=== PATIENT | female | born 1995 | race Caucasian/White ===

== ENCOUNTER 2016-11-26 09:42 | Emergency (ER) ==
[2016-11-26 09:52] VITALS: BP 114/79; TEMP 98; BMI 28.3
--- NOTE | 2016-11-26 09:59 | ED.PDOC ---
General ED Provider: Dr. VIN GALVIN Chief Complaint: Non-specific Complaint Stated Complaint: head lice Time Seen by Physician: 10:00 Mode of Arrival: Walk-In Information Source: Patient Exam Limitations: No limitations Nursing and Triage Documentation Reviewed and Agree: Yes Skin Complaint Exam - Skin Rash/Itching Complaint/Exam Onset/Duration: head lice Symptoms Are: Still present Initial Severity: Mild Current Severity: Mild Potential Exposures: Reports: Other (head lice) Aggravating: Reports: None Alleviating: Reports: None Associated Signs and Symptoms: Denies: Difficulty breathing, Fever, Chills Related History: Similar episode Skin Findings: Present: Normal findings Review of Systems - Review Of Systems Constitutional: Reports: No symptoms Eyes: Reports: No symptoms Ears, Nose, Mouth, Throat: Reports: No symptoms Respiratory: Reports: No symptoms Cardiac: Reports: No symptoms GI: Reports: No symptoms : Reports: No symptoms Musculoskeletal: Reports: No symptoms Skin: Reports: Other (head lice ) Neurological: Reports: No symptoms Endocrine: Reports: No symptoms Hematologic/Lymphatic: Reports: No symptoms All Other Systems: Reviewed and Negative Past Medical History - Past Medical History Endocrine: Reports: None Cardiovascular: Reports: None Respiratory: Reports: None Hematological: Reports: None Gastrointestinal: Reports: None Genitourinary: Reports: None Neuro/Psych: Reports: None Musculoskeletal: Reports: None Cancer: Reports: None Last Menstrual Period: 34 weeks ago - Surgical History General Surgical History: Reports: None - Family History Family History: Reports: None - Social History Smoking Status: Former smoker Hx Substance Use: No Alcohol Screening: None Physical Exam - Physical Exam Appearance: Well-appearing, No pain distress, Well-nourished Eyes: ROYER, EOMI, Conjunctiva clear ENT: Ears normal, Nose normal, Oropharynx normal Respiratory: Airway patent, Breath sounds clear, Breath sounds equal, Respirations nonlabored Cardiovascular: RRR, Pulses normal, No rub, No murmur GI/: Soft, Nontender, No masses, Bowel sounds normal, No Organomegaly Musculoskeletal: Normal strength, ROM intact, No edema, No calf tenderness Skin: Warm, Dry, Normal color (head lice present) Neurological: Sensation intact, Motor intact, Reflexes intact, Cranial nerves intact, Alert, Oriented Psychiatric: Affect appropriate, Mood appropriate Critical Care Note - Critical Care Note Total Time (mins): 0 Course - Course Vital Signs: Temp Pulse Resp BP Pulse Ox 11/26/16 09:43 98.0 F 107 H 14 114/79 99 Departure - Departure Time of Disposition: 09:59 Disposition: HOME SELF-CARE Discharge Problem: Head lice infestation Instructions: Permethrin (On the skin), Body Lice (ED) Condition: Good Pt referred to PMD for follow-up: No Additional Instructions: Please call your Family Physician as soon as possible to schedule a follow-up appointment. apply to head only wash after 15 min Allergies/Adverse Reactions: Allergies No Known Allergies Allergy (Verified 11/26/16 09:48) Home Medications: Ambulatory Orders Comb No.42/Folic Acid [Prena1 Chew Tablet] 1.4 mg PO DAILY 10/07/14
== END 2016-11-26 10:07 | disposition home or self-care (01) ==
LOC: ED 09:42
DX: B85.0 Pediculosis due to Pediculus humanus capitis (principal); Z33.1 Pregnant state, incidental
CPT/HCPCS: 99282

== ENCOUNTER 2017-06-03 12:44 | Outpatient (CLI) ==
[2017-06-03 13:13] LABS: COCAIN SCREEN,URINE NEGATIVE (NEGATIVE)
[2017-06-03 13:36] LABS: ALBUMIN 4.1 g/dL (3.4-5.0); ALBUMIN/GLOBULIN RATIO 1.17; ANION GAP 15.7; BILIRUBIN,TOTAL 0.42 mg/dL (0.00-1.20); BUN/CREATININE RATIO 9.52; CALCIUM 9.3 mg/dL (8.2-10.2); CREATININE 0.84 mg/dL (0.60-1.30); POTASSIUM 3.7 mmol/L (3.5-5.10); TOTAL PROTEIN 7.6 g/dL (6.4-8.2)
[2017-06-03 15:33] LABS: BASOPHILS % (AUTO) 0.4 % (0.0-3.0); EOSINOPHILS # (AUTO) 0.1 K/ul (0.0-0.7); EOSINOPHILS % (AUTO) 1.5 % (0.0-7.0); HEMATOCRIT 37.9 % (37.0-47.0); HEMOGLOBIN 12.6 g/dl (12.0-16.0); IMMATURE GRANULOCYTE % (AUTO) 0.2 % (0.0-5.0); LYMPHOCYTES # (AUTO) 1.8 K/uL (0.60-3.4); LYMPHOCYTES % (AUTO) 33.2 (10.0-50.0); MEAN CORPUSCULAR HEMOGLOBIN 28.6 pg (27.0-31.0); MEAN CORPUSCULAR HGB CONC 33.2 (31.8-35.4); MEAN CORPUSCULAR VOLUME 85.9 fl (81.0-99.0); MONOCYTES # (AUTO) 0.2 K/uL (0.4-2.0); MONOCYTES % (AUTO) 4.5 (0-10); NEUTROPHILS # (AUTO) 3.2 K/ul (2.0-6.9); NEUTROPHILS % (AUTO) 60.2; PLATELET COUNT 302 10^3/uL (140-440); RED BLOOD COUNT 4.41 10^6/ul (4.20-5.40); WHITE BLOOD COUNT 5.36 K/ul (4.6-10.2)
== END 2017-06-03 12:45 | disposition home or self-care (01) ==
LOC: LAB 12:44
PROVIDERS: ATTEND Nurse Practitioner Family
DX: F41.9 Anxiety disorder, unspecified (principal)
CPT/HCPCS: 36415; 80053; 80306; 84439; 84443; 85025

== ENCOUNTER 2017-10-21 13:34 | Outpatient (CLI) | END 2017-10-21 13:35 | disposition home or self-care (01) | LOC: LAB 13:34 | PROVIDERS: ATTEND Emergency Medicine | DX: R68.89 Other general symptoms and signs (principal) | CPT/HCPCS: 87502; 87651 ==

== ENCOUNTER 2017-11-19 17:26 | Outpatient (CLI) | END 2017-11-19 17:27 | disposition short-term general hospital (02) | LOC: AMBL 17:26 | PROVIDERS: ATTEND Internal Medicine | DX: N39.0 Urinary tract infection, site not specified (principal); N15.9 Renal tubulo-interstitial disease, unspecified ==

== ENCOUNTER 2018-02-11 05:30 | Emergency (ER) ==
[2018-02-11 05:48] VITALS: BP 115/79; TEMP 98.2; BMI 24.3
[2018-02-11] MEDS ORDERED: LIDOCAINE HCL 1% SDV IM STA (06:18)
[2018-02-11] MEDS ORDERED: ZITHROMAX PO STA (06:18)
[2018-02-11] MEDS ORDERED: ROCEPHIN IM STA (06:18)
--- NOTE | 2018-02-11 06:44 | ED.PDOC ---
General ED Provider: Dr. CHARANJIT MCGINNIS Chief Complaint: Non-specific Complaint Stated Complaint: Patient came for the bad case of head lice,. alos she is been itching and burning in vagina, no discharge, no abdominal pain, using otc medication not helping. Time Seen by Physician: 06:43 Mode of Arrival: Walk-In Information Source: Patient Primary Care Provider: BALJINDER RESENDIZ Nursing and Triage Documentation Reviewed and Agree: Yes Reviewed sepsis parameters & appropriate labs ordered?: No System Inflammatory Response Syndrome: Not Applicable Sepsis Protocol: For patient's 13 years and over: Temp is 96.8 and below OR 101 and greater Pulse >90 BPM Resp >20/minute Acutely Altered Mental Status Are patient's symptoms suggestive of a new infection, such as: -Pneumonia -Skin, Soft Tissue -Endocarditis -UTI -Bone, Joint Infection -Implantable Device -Acute Abdominal Infection -Wound Infection -Meningitis -Blood Stream Catheter Infection -Unknown Complaint Exam - UTI Female Complaint/Exam Patient Complains of: Reports: Painful urination (itching and burning on vagina. ) Symptoms Are: Still present Timing: Constant Initial Severity: Mild Location of Pain: Reports: None Associated Signs and Symptoms: Denies: Fever, Chills, Flank pain, Dyspareunia, Vaginal discharge Related History: Reports: Similar episode Related Surgical History: Reports: None CVA Tenderness: No Suprapubic Tenderness: No Vulva Exam: Present: Labial erythema (justine was present) Differential Diagnoses: Candidiasis, Cystitis, STD Review of Systems - Review Of Systems Constitutional: Reports: No symptoms Eyes: Reports: No symptoms Ears, Nose, Mouth, Throat: Reports: No symptoms Respiratory: Reports: No symptoms Cardiac: Reports: No symptoms GI: Reports: No symptoms : Reports: Burning, Pain Musculoskeletal: Reports: No symptoms Skin: Reports: No symptoms Neurological: Reports: No symptoms Endocrine: Reports: No symptoms Hematologic/Lymphatic: Reports: No symptoms All Other Systems: Reviewed and Negative Past Medical History - Past Medical History Previously Healthy: Yes Endocrine: Reports: None Cardiovascular: Reports: None Respiratory: Reports: None Hematological: Reports: None Gastrointestinal: Reports: None Genitourinary: Reports: None Neuro/Psych: Reports: None Musculoskeletal: Reports: None Cancer: Reports: None Last Menstrual Period: 5 DAYS AGO - Surgical History General Surgical History: Reports: None - Family History Family History: Reports: None - Social History Smoking Status: Current every day smoker, Light tobacco smoker Smoking Cessation Counseling Time: > 3 min - 10 min Hx Substance Use: No Alcohol Screening: None - Immunizations Tetanus Shot up to Date: (UNKNOWN) Physical Exam - Physical Exam Appearance: Well-appearing, No pain distress, Well-nourished Eyes: ROYER, EOMI, Conjunctiva clear ENT: Ears normal, Nose normal, Oropharynx normal Respiratory: Airway patent, Breath sounds clear, Breath sounds equal, Respirations nonlabored Cardiovascular: RRR, Pulses normal, No rub, No murmur GI/: Soft, Nontender, No masses, Bowel sounds normal, No Organomegaly Musculoskeletal: Normal strength, ROM intact, No edema, No calf tenderness Skin: Warm, Dry, Normal color Neurological: Sensation intact, Motor intact, Reflexes intact, Cranial nerves intact, Alert, Oriented Psychiatric: Affect appropriate, Mood appropriate Critical Care Note - Critical Care Note Total Time (mins): 20 Course - Course Orders, Labs, Meds: Orders Category Date Time Status URINALYSIS C & S IF INDICATED Stat LAB 02/11/18 06:18 Uncollected Azithromycin [Zithromax] MEDS 02/11/18 06:18 Discontinued 500 mg PO ONCE STA Ceftriaxone Sodium [Rocephin] MEDS 02/11/18 06:18 Discontinued 250 mg IM ONCE STA Lidocaine HCl/Pf [Lidocaine HCl 1% Sdv] MEDS 02/11/18 06:18 Discontinued 0.9 ml IM ONCE STA Medications Discontinued Medications Generic Name Dose Route Start Last Admin Trade Name Freq PRN Reason Stop Dose Admin Azithromycin 500 mg 02/11/18 06:18 Zithromax PO 02/11/18 06:19 ONCE STA Ceftriaxone Sodium 250 mg 02/11/18 06:18 Rocephin IM 02/11/18 06:19 ONCE STA Lidocaine HCl 0.9 ml 02/11/18 06:18 Lidocaine Hcl 1% Sdv IM 02/11/18 06:19 ONCE STA Vital Signs: Temp Pulse Resp BP Pulse Ox 02/11/18 05:30 98.2 F 78 18 115/79 98 Departure - Departure Time of Disposition: 06:50 Disposition: HOME SELF-CARE Discharge Problem: STD (female) Instructions: Sexually Transmitted Diseases (ED), Safe Sex (ED) Condition: Stable Pt referred to PMD for follow-up: Yes IPMP verified?: No Additional Instructions: Increase Hydration Do not mix with ETOH F/u with RHC Prescriptions: Fluconazole [Diflucan] 200 mg PO BID #8 tablet Allergies/Adverse Reactions: Allergies No Known Allergies Allergy (Verified 02/11/18 05:47) Home Medications: Ambulatory Orders Fluconazole [Diflucan] 200 mg PO BID #8 tablet 02/11/18 Disposition Discussed With: Patient
== END 2018-02-11 07:53 | disposition home or self-care (01) ==
LOC: ED 05:30
DX: A64 Unspecified sexually transmitted disease (principal); F17.210 Nicotine dependence, cigarettes, uncomplicated
CPT/HCPCS: 81001; 96372; 99283

== ENCOUNTER 2019-06-10 03:24 | Outpatient (CLI) | END 2019-06-10 03:37 | disposition short-term general hospital (02) | LOC: AMBL 03:24 | PROVIDERS: ATTEND Family Medicine | DX: R10.31 Right lower quadrant pain (principal); R11.0 Nausea; R42 Dizziness and giddiness ==